=== PATIENT | female | born 1960 | race African-American/Black ===

== ENCOUNTER 2017-01-26 12:37 | Emergency (ER) | payer OTHER, MEDICAID ==
[~2017-01-26] VITALS: Ht 149.9 cm; Wt 59.0 kg
[2017-01-26] MEDS ORDERED: SODIUM CHLORIDE 0.9% 10ML VIAL ONE (14:23)
[2017-01-26] MEDS ORDERED: IOHEXOL-300 100 ML BOTTLE ONE (14:23)
[2017-01-26] MEDS ORDERED: ONDANSETRON HCL 4MG/2ML VIAL IV STA (14:26)
[2017-01-26] MEDS ORDERED: MORPHINE SULFATE 4 MG/ML CPJ (NOT FOR IM USE) IV STA (14:26)
[2017-01-26] MEDS ORDERED: SODIUM CHLORIDE 0.9% 1,000 ML IV ONE (14:26)
[2017-01-26] MEDS ORDERED: VALPROATE SODIUM 500 MG in DEXT 5% WATER 100 ML IV ONE (14:30)
[2017-01-26 14:56] LABS: BASOPHILS % 0.2 % (0.0-2.0); EOSINOPHILS % 0.1 % (0.0-5.0); HEMOGLOBIN. 13.3 g/dL (12.0-16.0); MEAN CORPUSCULAR VOLUME 93.5 fL (81.0-99.0); MEAN PLATELET VOLUME 6.8 fl (7.4-10.4); MONOCYTES % 5.1 % (2.0-8.0); NEUTROPHILS % 82.6 % (40.0-76.0); PLATELET 255 x1000/uL (130-400); RED BLOOD CELL COUNT 4.16 mill/uL (4.2-5.4); RED CELL DISTRIBUTION WIDTH 15.3 % (11.6-14.6)
[2017-01-26 15:03] LABS: CHLORIDE 107 mEq/L (98-107); PROTHROMBIN TIME 10.2 sec (9.4-11.6)
[2017-01-26 15:09] LABS: CARBON DIOXIDE 23 mEq/L (21-32)
[2017-01-26 15:28] LABS: CLARITY URINE CLOUDY (CLEAR); COLOR URINE YELLOW (YELLOW); GLUCOSE URINE NEGATIVE (NEGATIVE); KETONES URINE 1+ (NEGATIVE); LEUKOCYTE ESTERASE URINE TRACE (NEGATIVE); NITRITE URINE NEGATIVE (NEGATIVE); OCCULT BLOOD URINE NEGATIVE (NEGATIVE); PROTEIN URINE NEGATIVE (NEGATIVE); SPECIFIC GRAVITY URINE 1.028 (1.005-1.030)
[2017-01-26] MEDS ORDERED: ONDANSETRON HCL 4MG/2ML VIAL IV ONE (16:30)
[2017-01-26 17:26] VITALS: BP 109/63
== END 2017-01-26 17:29 | disposition home or self-care (01) ==
LOC: ER 16:06 → CANBEDREQ 01-27 01:40
DX: R10.13 Epigastric pain (principal); R11.2 Nausea with vomiting, unspecified; F17.200 Nicotine dependence, unspecified, uncomplicated; Z88.8 Allergy status to other drugs, medicaments and biological substances
CPT/HCPCS: 36415; 74177; 80053; 81001; 83690; 85025; 85610; 96365; 96375; 99285; A4216; J2270; J2405; J3490; Q9967; J7030; J7060

== ENCOUNTER 2024-03-27 16:48 | Emergency (ER) | payer BC, MEDICAID ==
[~2024-03-27] VITALS: Ht 152.4 cm; Wt 53.0 kg
[2024-03-27 17:04] VITALS: TEMP 97.8; O2SAT 100
[2024-03-27 18:00] LABS: BASOPHILS % 0.4 % (0.0-2.0); EOSINOPHILS % 0.4 % (0.0-5.0); HEMATOCRIT. 40.2 % (36.0-48.0); HEMOGLOBIN. 13.8 g/dL (12.0-16.0); LYMPHOCYTES % 22.3 % (20.0-50.0); MEAN CORPUSCULAR HEMOGLOBIN 34.3 pg (28.0-32.0); MEAN CORPUSCULAR HGB CONC 34.3 g/dL (31.0-37.0); MEAN CORPUSCULAR VOLUME 99.9 fL (81.0-99.0); MEAN PLATELET VOLUME 7.1 fl (7.4-10.4); MONOCYTES % 11.8 % (2.0-8.0); NEUTROPHILS % 65.1 % (40.0-76.0); PLATELET 240 x1000/uL (130-400); RED BLOOD CELL COUNT 4.02 mill/uL (4.2-5.4); RED CELL DISTRIBUTION WIDTH 13.6 % (11.6-14.6); WHITE BLOOD COUNT 8.7 x1000/uL (4.5-11.0)
[2024-03-27 18:06] LABS: CHLORIDE 109 mEq/L (98-107); SODIUM 139 mEq/L (136-145)
[2024-03-27 18:07] LABS: CARBON DIOXIDE 25 mEq/L (21-32)
[2024-03-27 18:08] LABS: CALCIUM 9.6 mg/dL (8.7-10.4)
[2024-03-27 18:12] LABS: CREATININE 0.7 mg/dL (0.6-1.0)
[2024-03-27 18:13] LABS: GLUCOSE 103 mg/dL (70-105); UREA NITROGEN BLOOD 22 mg/dL (9-23)
[2024-03-27] MEDS ORDERED: DICL75TA5 MT (21:30)
[2024-03-27] MEDS ORDERED: TRAM50TA3 MT (21:30)
[2024-03-27 21:58] VITALS: O2SAT 100
[2024-03-27 21:59] VITALS: BP 126/62; PULSE 63; RESP 16
[2024-03-27] MEDS: KETOROLAC 30MG/ML VIAL IM ONE (21:59)
[2024-03-27] MEDS: HYDROCODONE/ACETAMINOPHEN 10/325MG TABLET PO ONE (21:59)
== END 2024-03-27 22:02 | disposition home or self-care (01) ==
LOC: ER 16:48
DX: M25.512 Pain in left shoulder (principal); Z88.8 Allergy status to other drugs, medicaments and biological substances; Z86.59 Personal history of other mental and behavioral disorders
CPT/HCPCS: 99284; 80048; 85025; 36415; 73030; 96372; J1885